=== PATIENT | female | born 1950 | race Hispanic/Latino ===

== ENCOUNTER → 2018-10-31 | Outpatient (CLI) | payer OTHER | END | disposition home or self-care (01) | LOC: RAH 11:44 | PROVIDERS: ATTEND Internal Medicine | DX: R60.0 Localized edema (principal) | CPT/HCPCS: 93970 ==

== ENCOUNTER 2020-05-23 14:07 | Emergency (ER) | payer OTHER ==
[2020-05-23 15:30] LABS: BASOPHILS % (AUTO) 0.2 % (0.0-5.0); EOSINOPHILS % (AUTO) 0.2 % (0.0-8.0); HEMATOCRIT 30.6 % (36-48); LYMPHOCYTES % (AUTO) 17.5 % (21.0-51.0); MEAN CORPUSCULAR HEMOGLOBIN 33.4 pg (27.0-33.0); MEAN CORPUSCULAR VOLUME 95.6 fL (79-99); MONOCYTES % (AUTO) 5.5 % (3.0-13.0); NEUTROPHILS % (AUTO) 76.1 % (40.0-77.0); PLATELET COUNT (AUTO) 302 K/uL (130-400); WHITE BLOOD COUNT (AUTO) 10.2 K/uL (4.8-10.8)
[2020-05-23 15:40] LABS: APPEARANCE,URINE Clear (CLEAR); BILIRUBIN,URINE Negative (NEGATIVE); COLOR,URINE Yellow (YELLOW); GLUCOSE, URINE (UA) Negative (NEGATIVE); KETONES,URINE Negative (NEGATIVE); LEUKOCYTE ESTERASE ,URINE Negative (NEGATIVE); NITRATE,URINE Negative (NEGATIVE); OCCULT BLOOD,URINE Negative (NEGATIVE); PROTEIN,URINE Negative (NEGATIVE); UROBILINOGEN,URINE 0.2 mg/dL (0.2-1.0)
[2020-05-23 15:43] LABS: ALBUMIN 4.2 g/dL (3.5-5.0); BILIRUBIN,TOTAL 0.4 mg/dL (0.2-1.0); CREATININE 0.6 mg/dL (0.5-1.5); POTASSIUM 4.4 mmol/L (3.5-5.1); TOTAL PROTEIN, SERUM 8.5 g/dL (6.0-8.3)
== END 2020-05-23 16:43 | disposition home or self-care (01) ==
LOC: EDH 14:07
DX: D64.9 Anemia, unspecified (principal); E87.1 Hypo-osmolality and hyponatremia; I10 Essential (primary) hypertension; E07.89 Other specified disorders of thyroid
CPT/HCPCS: 36415; 71045; 80053; 81003; 82550; 84484; 85025; 93005

== ENCOUNTER → 2020-06-06 | Outpatient (CLI) | payer OTHER, MEDICARE | END | disposition home or self-care (01) | LOC: SHCH 14:00 | PROVIDERS: ATTEND Internal Medicine Cardiovascular Disease | DX: I70.1 Atherosclerosis of renal artery (principal) | CPT/HCPCS: 93975 ==

== ENCOUNTER 2022-09-15 18:45 | Emergency (ER) | payer OTHER, MEDICARE ==
[~2022-09-15] VITALS: Ht 170.2 cm; Wt 72.6 kg
[2022-09-15] MEDS ORDERED: NIFEDIPINE 10 MG CAP PO ONE (19:00)
[2022-09-15 19:21] LABS: BASOPHILS % (AUTO) 0.5 % (0.0-5.0); EOSINOPHILS % (AUTO) 0.5 % (0.0-8.0); HEMATOCRIT 29.4 % (36-48); LYMPHOCYTES % (AUTO) 34.9 % (21.0-51.0); MEAN CORPUSCULAR HEMOGLOBIN 33.6 pg (27.0-33.0); MEAN CORPUSCULAR HGB CONC 34.4 g/dL (32.0-36.0); MEAN CORPUSCULAR VOLUME 97.7 fL (79-99); MONOCYTES % (AUTO) 8.3 % (3.0-13.0); NEUTROPHILS % (AUTO) 55.3 % (40.0-77.0); PLATELET COUNT (AUTO) 307 K/uL (130-400); RED BLOOD CELL COUNT(AUTO) 3.01 MIL/uL (4.00-5.50); RED CELL DISTRIBUTION WIDTH 15.8 % (11.0-15.5); WHITE BLOOD COUNT (AUTO) 8.5 K/uL (4.8-10.8)
[2022-09-15 19:23] LABS: APPEARANCE,URINE CLEAR (CLEAR); BILIRUBIN,URINE NEGATIVE (NEGATIVE); COLOR,URINE COLORLESS (YELLOW); GLUCOSE, URINE (UA) NEGATIVE (NEGATIVE); KETONES,URINE NEGATIVE (NEGATIVE); LEUKOCYTE ESTERASE ,URINE NEGATIVE Leu/uL (NEGATIVE); NITRATE,URINE NEGATIVE (NEGATIVE); OCCULT BLOOD,URINE NEGATIVE (NEGATIVE); PH,URINE 7.5 (5.0-8.0); PROTEIN,URINE NEGATIVE (NEGATIVE); UROBILINOGEN,URINE 0.2 mg/dL (0.2-1.0)
[2022-09-15 19:33] LABS: CARBON DIOXIDE 29 mmol/L (21-32); CHLORIDE 101 mmol/L (101-111); CREATININE 0.7 mg/dL (0.5-1.5); GLOMERULAR FILTR. RATE CALC 87 mL/min (>60); GLUCOSE,RANDOM 129 mg/dL (70-105); POTASSIUM 3.7 mmol/L (3.5-5.1); SODIUM SERUM 136 mmol/L (136-145); UREA NITROGEN, BLOOD 8 mg/dL (7-18)
[2022-09-15 19:41] LABS: ALANINE AMINOTRANSFERASE 23 U/L (12-78); ALBUMIN 4.2 g/dL (3.5-5.0); ASPARTATE AMINOTRANSFERASE 22 U/L (10-37); CREATINE KINASE, TOTAL 74 U/L (21-232); TOTAL PROTEIN, SERUM 8.1 g/dL (6.0-8.3)
[2022-09-15 19:56] LABS: CRP QUANTITATIVE < 2.00 mg/L (0.00-9.0)
[2022-09-15] MEDS ORDERED: AMLO-258 PO (20:30)
[2022-09-15] MEDS ORDERED: METO50TA18 PO (20:30)
[2022-09-15] MEDS ORDERED: FURO-152 PO (20:30)
[2022-09-15] MEDS ORDERED: LOSA100T58 PO (20:30)
[2022-09-15 20:33] VITALS: BP 150/52
== END 2022-09-15 20:45 | disposition home or self-care (01) ==
LOC: EDH 18:45
DX: I10 Essential (primary) hypertension (principal); D64.9 Anemia, unspecified; E78.00 Pure hypercholesterolemia, unspecified; Z79.899 Other long term (current) drug therapy; Z88.8 Allergy status to other drugs, medicaments and biological substances
CPT/HCPCS: 36415; 71045; 80053; 81003; 82550; 83880; 84484; 85025; 86140; 93005

== ENCOUNTER → 2023-02-01 | Outpatient (CLI) | payer OTHER, MEDICARE ==
[~2023-02-01] MED LIST: AMLO-258 PO; FURO-152 PO; LOSA100T58 PO; METO50TA18 PO
== END | disposition home or self-care (01) ==
LOC: SHCH 09:11
PROVIDERS: ATTEND Internal Medicine Cardiovascular Disease
DX: I08.3 Combined rheumatic disorders of mitral, aortic and tricuspid valves (principal); I48.91 Unspecified atrial fibrillation; I11.9 Hypertensive heart disease without heart failure; E78.5 Hyperlipidemia, unspecified
CPT/HCPCS: 93306

== ENCOUNTER → 2023-02-15 | Outpatient (CLI) | payer OTHER, MEDICARE ==
[2023-02-15 12:06] LABS: BASOPHILS % (AUTO) 0.4 % (0.0-5.0); EOSINOPHILS % (AUTO) 1.6 % (0.0-8.0); HEMATOCRIT 31.4 % (36-48); LYMPHOCYTES % (AUTO) 21.4 % (21.0-51.0); MEAN CORPUSCULAR HEMOGLOBIN 33.6 pg (27.0-33.0); MEAN CORPUSCULAR HGB CONC 32.8 g/dL (32.0-36.0); MEAN CORPUSCULAR VOLUME 102.3 fL (79-99); MONOCYTES % (AUTO) 8.1 % (3.0-13.0); NEUTROPHILS % (AUTO) 68.1 % (40.0-77.0); NUCLEATED RED BLOOD CELLS 0.3 % (0.0-0.19); PLATELET COUNT (AUTO) 323 K/uL (130-400); RED BLOOD CELL COUNT(AUTO) 3.07 MIL/uL (4.00-5.50); RED CELL DISTRIBUTION WIDTH 18.1 % (11.0-15.5); WHITE BLOOD COUNT (AUTO) 6.8 K/uL (4.8-10.8)
== END | disposition home or self-care (01) ==
LOC: LAB 09:16
PROVIDERS: ATTEND Internal Medicine Cardiovascular Disease
DX: I48.91 Unspecified atrial fibrillation (principal)
CPT/HCPCS: 36415; 85025

== ENCOUNTER → 2023-03-22 | Outpatient (CLI) | payer OTHER, MEDICARE ==
[~2023-03-22] MED LIST changes: -LOSA100T58 PO; +LOSA100T59 PO
[2023-03-22 12:40] LABS: CREATININE 0.7 mg/dL (0.5-1.5); POTASSIUM 4.8 mmol/L (3.5-5.1)
== END | disposition home or self-care (01) ==
LOC: LAB 08:31
PROVIDERS: ATTEND Internal Medicine Cardiovascular Disease
DX: I10 Essential (primary) hypertension (principal)
CPT/HCPCS: 36415; 80048

== ENCOUNTER → 2023-05-24 | Outpatient (CLI) | payer OTHER, MEDICARE ==
[2023-05-24 12:35] LABS: CREATININE 0.9 mg/dL (0.5-1.5); POTASSIUM 4.9 mmol/L (3.5-5.1)
== END | disposition home or self-care (01) ==
LOC: LAB 08:50
PROVIDERS: ATTEND Internal Medicine Cardiovascular Disease
DX: I10 Essential (primary) hypertension (principal)
CPT/HCPCS: 36415; 80048

== ENCOUNTER → 2023-08-16 | Outpatient (CLI) | payer OTHER, MEDICARE ==
[2023-08-16 22:21] VITALS: PULSE 72; RESP 18
[2023-08-16 23:00] VITALS: PULSE 68; RESP 12
[2023-08-16 23:30] VITALS: PULSE 64; RESP 12
[2023-08-17] VITALS (11 sets, daily range): PULSE 62–70; RESP 10–14
== END | disposition home or self-care (01) ==
LOC: SLP 20:29
PROVIDERS: ATTEND Internal Medicine
DX: G47.33 Obstructive sleep apnea (adult) (pediatric) (principal); I10 Essential (primary) hypertension
CPT/HCPCS: 95810

== ENCOUNTER → 2023-08-28 | Outpatient (CLI) | payer OTHER, MEDICARE ==
[2023-08-28 22:40] VITALS: PULSE 50; RESP 11
[2023-08-28 23:09] VITALS: PULSE 66; RESP 9
[2023-08-28 23:23] VITALS: PULSE 108; RESP 11
[2023-08-28 23:53] VITALS: PULSE 65; RESP 13
[2023-08-29] VITALS (14 sets, daily range): PULSE 54–72; RESP 8–23
== END | disposition home or self-care (01) ==
LOC: SLP 10:00
PROVIDERS: ATTEND Internal Medicine
DX: G47.33 Obstructive sleep apnea (adult) (pediatric) (principal); I10 Essential (primary) hypertension
CPT/HCPCS: 95811

== ENCOUNTER → 2024-01-22 | Outpatient (CLI) | payer OTHER, MEDICARE | END | disposition home or self-care (01) | LOC: RAH 13:10 | PROVIDERS: ATTEND Internal Medicine | DX: N63.25 Unspecified lump in the left breast, overlapping quadrants (principal); R59.0 Localized enlarged lymph nodes | CPT/HCPCS: 76641 ==

== ENCOUNTER → 2024-02-10 | Outpatient (CLI) | payer OTHER, MEDICARE | END | disposition home or self-care (01) | LOC: RAH 15:55 | PROVIDERS: ATTEND Internal Medicine | DX: M71.21 Synovial cyst of popliteal space [Baker], right knee (principal) | CPT/HCPCS: 76882 ==

== ENCOUNTER → 2024-03-27 | Outpatient (CLI) | payer OTHER, MEDICARE ==
[2024-03-27 14:39] LABS: BASOPHILS # (AUTO) 0.05 K/uL (0.00-0.20); BASOPHILS % (AUTO) 0.5 % (0.0-5.0); EOSINOPHILS # (AUTO) 0.23 K/uL (0.00-0.70); EOSINOPHILS % (AUTO) 2.5 % (0.0-8.0); HEMATOCRIT 28.7 % (36-48); IMMATURE GRANULOCYTE ABSOLUTE 0.05 K/uL (0-1); LYMPHOCYTES # (AUTO) 2.3 K/uL (1.0-4.8); LYMPHOCYTES % (AUTO) 24.3 % (21.0-51.0); MEAN CORPUSCULAR HEMOGLOBIN 34.1 pg (27.0-33.0); MEAN CORPUSCULAR HGB CONC 34.1 g/dL (32.0-36.0); MONOCYTES # (AUTO) 0.8 K/uL (0.1-1.0); MONOCYTES % (AUTO) 8.8 % (3.0-13.0); NEUTROPHILS # (AUTO) 5.9 K/uL (1.8-7.7); NEUTROPHILS % (AUTO) 63.4 % (40.0-77.0); PLATELET COUNT (AUTO) 301 K/uL (130-400); RED BLOOD CELL COUNT(AUTO) 2.87 MIL/uL (4.00-5.50); RED CELL DISTRIBUTION WIDTH 17.2 % (11.0-15.5); WHITE BLOOD COUNT (AUTO) 9.4 K/uL (4.8-10.8)
== END | disposition home or self-care (01) ==
LOC: LAB 13:32
PROVIDERS: ATTEND Nurse Practitioner Acute Care
DX: D64.9 Anemia, unspecified (principal)
CPT/HCPCS: 36415; 85025

== ENCOUNTER → 2024-05-26 | Outpatient (CLI) | payer OTHER, MEDICARE ==
[~2024-05-26] MED LIST changes: +IOHEXOL 350 MG/ML 100ML INFUS..BTL IV ONE
== END | disposition home or self-care (01) ==
LOC: RAH 08:31
PROVIDERS: ATTEND Internal Medicine Hematology & Oncology
DX: I70.0 Atherosclerosis of aorta (principal); R79.89 Other specified abnormal findings of blood chemistry; D46.1 Refractory anemia with ring sideroblasts
CPT/HCPCS: 74175; Q9967

== ENCOUNTER → 2025-05-13 | Outpatient (CLI) | payer OTHER, MEDICARE ==
[~2025-05-13] MED LIST changes: +GADOTERATE MEGLUMINE 10 MMOL/20 ML VIAL IV ONE; -IOHEXOL 350 MG/ML 100ML INFUS..BTL IV ONE
--- NOTE | 2025-05-13 20:33 | HMCIMG ---
EXAM: MR Thoracic Spine Without and With Intravenous Contrast. CLINICAL HISTORY: Deforming dorsopathy. TECHNIQUE: Magnetic resonance images of the thoracic spine in multiple planes. CONTRAST: Yes. COMPARISON: None. FINDINGS: The cervicothoracic and thoracolumbar junction are intact. Acute compression fracture of the T6 vertebral body causing approximately 40% height loss. Old compression fractures of the T8 and T10 vertebral bodies causing approximately 90% height loss. Posterior bulging of the T6, T8, T10 vertebral bodies causing mild indentation on the anterior thecal sac. Exaggerated thoracic kyphosis. Mild multilevel spondylosis is evident by marginal osteophytes and facet joint arthropathy. Multilevel disc desiccation noted. Normal remaining vertebral body and disc heights. Normal marrow signal of the remaining vertebrae. The thoracic cord is in an anatomic location without abnormal signals. No abnormal extra-axial masses are present. The prevertebral and paravertebral soft tissues are within normal limits. [id number] findings are as follows: C7-T1: No disc bulge or herniation. No neural foraminal, lateral recess or spinal canal stenosis. T1-T2: No disc bulge or herniation. No neural foraminal, lateral recess or spinal canal stenosis. T2-T3: No disc bulge or herniation. No neural foraminal, lateral recess or spinal canal stenosis. T3-T4: No disc bulge or herniation. No neural foraminal, lateral recess or spinal canal stenosis. T4-T5: No disc bulge or herniation. No neural foraminal, lateral recess or spinal canal stenosis. T5-T6: No disc bulge or herniation. No neural foraminal, lateral recess or spinal canal stenosis. T6-T7: No disc bulge or herniation. No neural foraminal, lateral recess or spinal canal stenosis. T7-T8: No disc bulge or herniation. No neural foraminal, lateral recess or spinal canal stenosis. T8-T9: No disc bulge or herniation. No neural foraminal, lateral recess or spinal canal stenosis. T9-T10: No disc bulge or herniation. No neural foraminal, lateral recess or spinal canal stenosis. T10-T11: No disc bulge or herniation. No neural foraminal, lateral recess or spinal canal stenosis. T11-T12: No disc bulge or herniation. No neural foraminal, lateral recess or spinal canal stenosis. T12-L1: No disc bulge or herniation. No neural foraminal, lateral recess or spinal canal stenosis. IMPRESSION: Acute compression fracture of the T6 vertebral body causing approximately 40% height loss. Old compression fractures of the T8 and T10 vertebral bodies causing approximately 90% height loss. Posterior bulging of the T6, T8, T10 vertebral bodies causing mild indentation on the anterior thecal sac. Exaggerated thoracic kyphosis. Mild multilevel spondylosis. /[place]
== END | disposition home or self-care (01) ==
LOC: RAH 12:29
PROVIDERS: ATTEND Internal Medicine
DX: M47.814 Spondylosis without myelopathy or radiculopathy, thoracic region (principal); M43.9 Deforming dorsopathy, unspecified
CPT/HCPCS: 72157; A9575